=== PATIENT | male | born 1995 | race Caucasian/White ===

== ENCOUNTER 2021-02-15 15:26 | Emergency (ER) | payer OTHER ==
[2021-02-15] MEDS ORDERED: Lidocaine 1% (PF) 30 ML VIAL ONE (15:43)
[2021-02-15] MEDS ORDERED: Boostrix 0.5 ML (Tdap) VIAL ONE (15:45)
[2021-02-15] MEDS ORDERED: Bacitracin 1 PK ONE (16:11)
== END 2021-02-15 16:20 | disposition home or self-care (01) ==
LOC: NAV ERS 15:26
DX: S61.210A Laceration without foreign body of right index finger without damage to nail, initial encounter (principal); E03.9 Hypothyroidism, unspecified; Z79.899 Other long term (current) drug therapy; W26.8XXA Contact with other sharp object(s), not elsewhere classified, initial encounter
CPT/HCPCS: 12001; 90471; 90715; J2001